=== PATIENT | male | born 1985 | race Two or more races ===

== ENCOUNTER → 2017-02-21 | Outpatient (CLI) | payer OTHER ==
[2017-02-21 08:21] LABS: BASOPHIL % 0.6 % (0-2); PLATELET COUNT 255 x10^3mcL (130-400); RED CELL DISTRIBUTION WIDTH 13.1 % (11.5-14.5)
[2017-02-21 08:45] LABS: ALBUMIN 4.3 g/dL (3.4-5.0); ALT/SGPT 75 U/L (16-63); AST/SGOT 0.8 U/L (15-37); BILIRUBIN TOTAL 0 mg/dL (0.20-1.00); CALCIUM 9.3 mg/dL (8.5-10.1); CARBON DIOXIDE 29.9 mmol/L (21-32); CHLORIDE SERUM 102 mmol/L (98-107); GFR1 > 60 mL/min; GLUCOSE SERUM 98 mg/dL (74-106); POTASSIUM SERUM 3.9 mmol/L (3.5-5.1); SODIUM SERUM 138 mmol/L (136-145)
[2017-02-21 08:46] LABS: ALKALINE PHOSPHATASE 71 U/L (46-116); CHOLESTEROL 221 mg/dL (<200); CHOLESTEROL/HDL RATIO 3.3; HDL CHOLESTEROL 68 mg/dL (40-60); TRIGLYCERIDES 98 mg/dL (<150)
[2017-02-21 08:51] LABS: FREE T4 0.98 ng/dL (0.76-1.46); FREE THYROXINE INDEX 3.3 ug/dL (1.4-4.5); T4(THYROXINE) 9.5 ug/dL (4.7-13.3)
[2017-02-21 09:01] LABS: T3 TOTAL 1.24 ng/mL
[2017-02-22 06:14] LABS: VITAMIN D 25-HYDROXY 18.7 ng/mL (30.0-100.0)
== END | disposition home or self-care (01) ==
LOC: LB 07:59
PROVIDERS: Family Medicine
DX: E78.5 Hyperlipidemia, unspecified (principal); R63.5 Abnormal weight gain; R92.8 Other abnormal and inconclusive findings on diagnostic imaging of breast
CPT/HCPCS: 84439